=== PATIENT | female | born 1995 | race Two or more races ===

== ENCOUNTER 2017-05-29 18:43 | Emergency (ER) | payer BC ==
[2017-05-29 18:50] VITALS: BP 139/93
[2017-05-29 19:33] LABS: ABSOLUTE BASOPHILS # (AUTO) 0.1 10^3/uL (0.0-0.2); ABSOLUTE EOSINOPHILS # (AUTO) 0.1 10^3/uL (0.0-0.6); ABSOLUTE LYMPHOCYTES (AUTO) 2.4 10^3/uL (0.5-4.7); ABSOLUTE MONOCYTES (AUTO) 0.6 10^3/uL (0.1-1.4); ABSOLUTE NEUT (AUTO) 5.3 10^3/uL (1.7-8.2); BASOPHILS % (AUTO) 0.6 % (0-2); EOSINOPHILS % (AUTO) 0.7 % (0-6); HEMOGLOBIN 12.8 g/dL (12.0-15.5); HGB HCT DIFFERENCE 0.4; LYMPHOCYTES % (AUTO) 28.9 % (13-45); MEAN CORPUSCULAR HEMOGLOBIN 29.8 pg (27.0-33.4); MEAN CORPUSCULAR HGB CONC 33.8 g/dL (32.0-36.0); MEAN CORPUSCULAR VOLUME 88 fl (80-97); MONOCYTES % (AUTO) 6.6 % (3-13); RED BLOOD COUNT 4.31 10^6/uL (3.72-5.28); RED CELL DISTRIBUTION WIDTH 12.9 % (11.5-14.0); SEGMENTED NEUTROPHILS % (AUTO) 63.2 % (42-78); WHITE BLOOD COUNT 8.4 10^3/uL (4.0-10.5)
[2017-05-29 19:46] LABS: ALANINE AMINOTRANSFERASE 42 U/L (9-52); ALBUMIN 4.4 g/dL (3.5-5.0); ALKALINE PHOSPHATASE 66 U/L (38-126); ANION GAP 10 (5-19); ASPARTATE AMINO TRANSFERASE 22 U/L (14-36); BILIRUBIN,DIRECT 0.3 mg/dL (0.0-0.4); BILIRUBIN,TOTAL 0.3 mg/dL (0.2-1.3); BLOOD UREA NITROGEN 8 mg/dL (7-20); CALCIUM 9.7 mg/dL (8.4-10.2); CARBON DIOXIDE 23 mmol/L (22-30); CHLORIDE 107 mmol/L (98-107); CREATININE RESULT 0.57 mg/dL (0.52-1.25); GLUCOSE 96 mg/dL (75-110); POTASSIUM 4.1 mmol/L (3.6-5.0); SODIUM 139.7 mmol/L (137-145)
--- NOTE | 2017-05-29 20:23 | ER Document Report ---
ED General - General Chief Complaint: Vaginal Bleeding Stated Complaint: VAGINAL BLEEDING Time Seen by Provider: 05/29/17 19:03 Mode of Arrival: Ambulatory Information source: Patient Notes: 21-year-old female presents with complaints of vaginal breathing. Patient denies any fevers or chills denies any nausea vomiting or diarrhea. Patient notes that the bleeding was very heavy this morning has since led not. Patient took 3 tests at home 1 of the 3 was positive and she is unsure if she is miscarrying TRAVEL OUTSIDE OF THE [place] IN LAST 30 DAYS: No - HPI Onset: This morning Onset/Duration: Sudden Quality of pain: Cramping Severity: Mild Pain Level: 1 Associated symptoms: None Exacerbated by: Denies Relieved by: Denies Similar symptoms previously: No Recently seen / treated by doctor: No - Related Data Allergies/Adverse Reactions: No Known Allergies Allergy (Unverified 05/29/17 18:49) Past Medical History - Social History Smoking Status: Never Smoker Cigarette use (# per day): No Chew tobacco use (# tins/day): No Smoking Education Provided: No Frequency of alcohol use: None Drug Abuse: None Family History: Reviewed & Not Pertinent Renal/ Medical History: Denies: Hx Peritoneal Dialysis Surgical Hx: Negative Review of Systems - Review of Systems Notes: REVIEW OF SYSTEMS: CONSTITUTIONAL : Denies fever, chills, or sweats. Denies recent illness. EENT: Denies eye, ear, throat, or mouth pain or symptoms. Denies nasal or sinus congestion or discharge. Denies throat, tongue, or mouth swelling or difficulty swallowing. CARDIOVASCULAR: Denies chest pain. Denies palpitations or racing or irregular heart beat. Denies ankle edema. RESPIRATORY: Denies cough, cold, or chest congestion. Denies shortness of breath, difficulty breathing, or wheezing. GASTROINTESTINAL: Denies abdominal pain or distention. Denies nausea, vomiting , or diarrhea. Denies blood in vomitus, stools, or per rectum. Denies black, tarry stools. Denies constipation. GENITOURINARY: Denies difficulty urinating, painful urination, burning, frequency, blood in urine, or discharge. FEMALE GENITOURINARY: Admits vaginal bleeding MUSCULOSKELETAL: Denies back or neck pain or stiffness. Denies joint pain or swelling. SKIN: Denies rash, lesions or sores. HEMATOLOGIC : Denies easy bruising or bleeding. LYMPHATIC: Denies swollen, enlarged glands. NEUROLOGICAL: Denies confusion or altered mental status. Denies passing out or loss of consciousness. Denies dizziness or lightheadedness. Denies headache. Denies weakness or paralysis or loss of use of either side. Denies problems with gait or speech. Denies sensory loss, numbness, or tingling. Denies seizures. PSYCHIATRIC: Denies anxiety or stress. Denies depression, suicidal ideation, or homicidal ideation. ALL OTHER SYSTEMS REVIEWED AND NEGATIVE. PHYSICAL EXAMINATION: GENERAL: Well-appearing, well-nourished and in no acute distress. HEAD: Atraumatic, normocephalic. EYES: Pupils equal round and reactive to light, extraocular movements intact, conjunctiva are normal. ENT: Nares patent, oropharynx clear without exudates. Moist mucous membranes. NECK: Normal range of motion, supple without lymphadenopathy LUNGS: Breath sounds clear to auscultation bilaterally and equal. No wheezes rales or rhonchi. HEART: Regular rate and rhythm without murmurs ABDOMEN: Soft, nontender, nondistended abdomen. No guarding, no rebound. No masses appreciated. Female : deferred Musculoskeletal: Normal range of motion, no pitting or edema. No cyanosis. NEUROLOGICAL: Cranial nerves grossly intact. Normal speech, normal gait. Normal sensory, motor exams PSYCH: Normal mood, normal affect. SKIN: Warm, Dry, normal turgor, no rashes or lesions noted. Dictation was performed using [employer] voice recognition software Physical Exam - Vital signs Vitals: Temp Pulse Resp BP Pulse Ox 98.7 F 87 20 139/93 H 100 05/29/17 18:49 05/29/17 18:49 05/29/17 18:49 05/29/17 18:49 05/29/17 18:49 Course - Re-evaluation Re-evalutation: 05/29/17 21:15 Lab work noted no significant abnormality, patient is not . Therefore this appears to be a late menses. There is no signs of any life-threatening issues patient is given pain control and follow-up with [facility] After performing a Medical Screening Examination, I estimate there is LOW risk for ACUTE APPENDICITIS, BOWEL OBSTRUCTION, ACUTE CHOLECYSTITIS, PERFORATED DIVERTICULITIS, INCARCERATED HERNIA, PANCREATITIS, PELVIC INFLAMMATORY DISEASE, PERFORATED ULCER, ECTOPIC , or T[place]-OVARIAN ABSCESS, thus I consider the discharge disposition reasonable. Also, there is no evidence or peritonitis , sepsis, or toxicity. I have reevaluated this patient multiple times and no significant life threatening changes are noted. The patient and I have discussed the diagnosis and risks, and we agree with discharging home with close follow-up with the understanding that symptoms and presentations can change. We also discussed returning to the Emergency Department immediately if new or worsening symptoms occur. We have discussed the symptoms which are most concerning (e.g., bloody stool, fever, changing or worsening pain, vomiting) that necessitate immediate return. - Vital Signs Vital signs: Temp Pulse Resp BP Pulse Ox 98.7 F 87 20 139/93 H 100 05/29/17 18:49 05/29/17 18:49 05/29/17 18:49 05/29/17 18:49 05/29/17 18:49 - Laboratory Result Diagrams: 05/29/17 19:15 05/29/17 19:15 Discharge - Discharge Clinical Impression: Vaginal bleeding Condition: Stable Disposition: HOME, SELF-CARE Instructions: Vaginal Bleeding ([facility]) Prescriptions: Hydrocodone/Acetaminophen [[place] 5-325 mg Tablet] 1 tab PO Q6 #10 tablet Referrals: [facility] [Provider Group] - Follow up tomorrow
[2017-05-29] MEDS ORDERED: OXYCODONE-ACETAMINOPHEN 5-325 MG TABLET PO ONE (20:33)
== END 2017-05-29 20:41 | disposition home or self-care (01) ==
LOC: ER 18:43
DX: N93.9 Abnormal uterine and vaginal bleeding, unspecified (principal)
CPT/HCPCS: 36415; 80053; 84702; 85025; 99284